=== PATIENT | male | born 1925 | race Caucasian/White ===

== ENCOUNTER 2016-03-10 14:51 | Outpatient (CLI) ==
--- NOTE | 2016-03-10 15:29 | DI ---
EXAM: Chest two views CLINICAL INDICATION: Chest pain with shortness of breath and history congestive heart failure. COMPARISON: 09/28/2010. FINDINGS: PA and lateral views of the thorax are provided. There are chronic underlying pulmonary parenchymal changes. There is some scarring which is partial ly obscuring the left heart border, which is completely unchanged from September 2010. The remainder o f the pulmonary parenchyma is clear and there is no pleural abnormality. The cardiomediastinal silh ouette and visualized bony structures are unchanged with a left-sided implanted cardiac device and c ardiomegaly. There is multilevel thoracic vertebral degenerative changes. IMPRESSION: 1. No interval change, with no acute pulmonary abnormality. 2. Chronic underlying pulmonary parenchymal changes. 3. Cardiomegaly with left-sided implanted cardiac device.
== END 2016-03-10 14:52 | disposition home or self-care (01) ==
LOC: RAD 14:51
PROVIDERS: ATTEND Family Medicine
DX: I10 Essential (primary) hypertension (principal); I50.32 Chronic diastolic (congestive) heart failure; N18.3 Chronic kidney disease, stage 3 (moderate); R06.02 Shortness of breath

== ENCOUNTER 2016-03-17 07:10 | Outpatient (CLI) ==
[2016-03-17 07:37] VITALS: BP 133/69; TEMP 97
--- NOTE | 2016-03-17 09:17 | US ---
Examination: Macias-scale and color Doppler ultrasonographic evaluation of the kidneys. Comparison: None available. Reason for study: Chronic kidney disease. FINDINGS: Ultrasonographic evaluation is limited secondary to patient's body habitus and inability to hold res piration. Right Kidney: The right kidney measures 9.3 x 3.9 x 4.4 cm with a hyper appearing echotexture. No obvious hydrone phrosis or nephrolithiasis. In the superior/midportion of the right kidney. There is a 1.5 x 1.3 x 1.6 cm cystic structure without internal vascular flow. The left kidney measures approximately 9.7 x 5.9 x 4.6 cm with focal areas of increased echogenicity , no hydronephrosis, and no nephrolithiasis. In the inferior left kidney. There is a 1.8 x 1.8 x 2 .3 cm cystic structure without internal vascular flow. Perinephric fat is seen adjacent to the both the left and right kidney. The bladder is empty and not well visualized. FINDINGS: 1. Limited evaluation secondary to patient body habitus. 2. No obvious hydronephrosis or nephrolithiasis with bilateral renal cysts.
== END 2016-03-17 07:57 | disposition home or self-care (01) ==
LOC: RAD 07:10
PROVIDERS: ATTEND Family Medicine
DX: N18.4 Chronic kidney disease, stage 4 (severe) (principal)
CPT/HCPCS: 76770

== ENCOUNTER 2016-03-29 16:57 | Outpatient (CLI) | END 2016-03-29 16:58 | LOC: AMBL 16:57 | PROVIDERS: ATTEND Internal Medicine | DX: R06.02 Shortness of breath (principal); R60.0 Localized edema; Z86.73 Personal history of transient ischemic attack (TIA), and cerebral infarction without residual deficits; Z95.0 Presence of cardiac pacemaker; Z79.899 Other long term (current) drug therapy ==